=== PATIENT | female | born 1970 | race Caucasian/White ===

== ENCOUNTER → 2017-01-08 | Outpatient (CLI) | payer OTHER ==
--- NOTE | 2017-01-08 11:57 | MR ---
MR brain without contrast HISTORY: Headaches Planar multisequence imaging through the brain There is no restricted diffusion. No hemorrhage or hydrocephalus noted. There are normal vascular parish w voids. Cerebellopontine angles, corpus callosum, pituitary, cervical medullary junction are normal. Scattered hyperintensities are present within the deep white matter on inversion recovery and T2-renato ghted sequences, approximately 4 5 lesions noted. The orbits show a symmetric appearance. Mucosal dis ease present within the maxillary sinuses, ethmoid air cells. Probable sebaceous cyst present over th e left frontal scalp. IMPRESSION: Nonspecific white matter demyelination of questionable clinical significance. Findings co uld be due to migraine headaches, vasculitis, multiple sclerosis is felt to be less likely. Mild muco primo disease within the sinuses.
== END | disposition home or self-care (01) ==
LOC: RADMRIMAIN 10:15
PROVIDERS: ATTEND Family Medicine
DX: R51 Headache (principal)
CPT/HCPCS: 70551

== ENCOUNTER → 2017-10-07 | Outpatient (CLI) | payer OTHER ==
[2017-10-07 10:33] LABS: Basophils % (A) 0 %; Eosinophils # (A) 0.1 k/uL (0-0.7); Eosinophils % (A) 2 %; HCT 40.9 % (34.0-46.0); HGB 13.4 gm/dL (11.4-16.0); Lymphocytes # (A) 1.2 k/uL (1.0-4.8); Lymphocytes % (A) 23 %; MCH 31.6 pg (25.0-35.0); MCHC 32.9 g/dL (31.0-37.0); MCV 96.2 fL (80.0-100.0); Monocytes # (A) 0.5 k/uL (0-1.0); Monocytes % (A) 9 %; Neutrophils # (A) 3.3 k/uL (1.3-7.7); Neutrophils % (A) 64 %; Platelet Count 323 k/uL (150-450); RBC 4.25 m/uL (3.80-5.40); RDW 12.9 % (11.5-15.5); WBC 5.2 k/uL (3.8-10.6)
== END | disposition home or self-care (01) ==
LOC: LABPAT 09:36
PROVIDERS: ATTEND Obstetrics & Gynecology Obstetrics
DX: Z01.812 Encounter for preprocedural laboratory examination (principal); N92.0 Excessive and frequent menstruation with regular cycle
CPT/HCPCS: 36415; 85025

== ENCOUNTER 2017-10-15 07:39 | Day surgery (SDC) | payer OTHER ==
[2017-10-10 16:40] VITALS: BMI 25.4
--- NOTE | 2017-10-11 09:53 | HP ---
HISTORY AND PHYSICAL This is a very pleasant 46-year-old female, G3, P3, with complaints of heavy menstrual bleeding. Patient states her menstrual cycles are every 28 to 30 days, lasting 3 days in nature, very heavy with clots. She denies dysmenorrhea at this time. She does desire an endometrial ablation. Ultrasound was obtained, normal pelvic anatomy was visualized with a small intramural fibroid. PAST MEDICAL HISTORY: None. PAST SURGICAL HISTORY: Hernia surgery. MEDICATIONS: 1. Imitrex 100 mg as needed. 2. Xanax 0.25 mg as needed to sleep. ALLERGIES: No known drug allergies. 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 Menstrual cycles as stated above, are heavy in nature, but regular. SOCIAL HISTORY: She is a former smoker with minimal alcohol use. REVIEW OF SYSTEMS: She denies fatigue, fever, chills. GI: Denies diarrhea, constipation, or abdominal pain. GENITOURINARY: She admits to heavy menstrual cycles or menorrhagia. She denies urinary urgency, frequency, dysuria, dysmenorrhea, vaginal discharge or vaginal odor. PHYSICAL EXAM: Her vital signs are stable. CONSTITUTIONAL: She is a well-nourished, well-developed female. Her abdomen is noted to be soft and nontender. GENITOURINARY: External genitalia is normal appearance for age. The vaginal mucosa is pink and well rugated. The cervix is without lesion. The uterus is normal size, anteverted, and mobile. No adnexal masses are visualized. Mental status is normal in nature. She is alert and oriented. Her mood and affect are appropriate and she is grossly oriented to person, place, and time. ASSESSMENT: Menorrhagia. PLAN: Hysteroscopy, dilation and curettage with endometrial ablation, NovaSure. Information is given to the patient. All questions are answered and informed consent is obtained. Risks were reviewed with the patient including, but not limited to, infection, bleeding, uterine perforation, hematometra, failure of procedure with need for further surgery in the future. Patient states understanding. All questions are answered and we will proceed. MMODL / IJN: [id number] /
[~2017-10-15 07:39] MED LIST: DEXAMETHASONE SOD PHOSPHATE 10 MG/ML 1 ML VIAL IV ONE; HYDROmorphone 0.5 MG/0.5 ML SYRINGE IVP PRN; LACTATED RINGERS 1,000 ML IV SCH; LIDOCAINE 1% 20 ML VIAL (10MG/ML) FOR IV START INTRADERMA PRN; MIDAZOLAM 2 MG/2 ML VIAL IV PRN; ONDANSETRON 4 MG/2 ML VIAL IVP ONE; Pre Op ABX Message 1 EACH MISC MISCELLANE ONE; SCOPOLAMINE 1.5MG/72HR PATCH TRANSDERM ONE
[2017-10-15] MEDS ORDERED: LACTATED RINGERS 1,000 ML IV ONE (08:46)
[2017-10-15] MEDS ORDERED: KETOROLAC 30 MG/ML 1 ML VIAL ONE (10:21)
[2017-10-15] MEDS ORDERED: LIDOCAINE 1% INJ 10MG/ML (20 ML MDV) ONE (10:21)
[2017-10-15] MEDS ORDERED: MIDAZOLAM 2 MG/2 ML VIAL ONE (10:21)
[2017-10-15] MEDS ORDERED: fentaNYL (PF) 50 MCG/ML 2 ML AMP ONE (10:21)
[2017-10-15] MEDS ORDERED: PROPOFOL 10 MG/ML 20 ML VIAL IV ONE (10:21)
[2017-10-15 11:15] VITALS: TEMP 99
--- NOTE | 2017-10-15 11:22 | P.OP ---
Date of Procedure: 10/15/17 Preoperative Diagnosis: Menorrhagia Postoperative Diagnosis: Same Procedure(s) Performed: Hysteroscopy, dilation and curettage with endometrial ablation, NovaSure Anesthesia: MAC Surgeon: Roshni Jacob Estimated Blood Loss (ml): 10 IV fluids (ml): 350 Urine output (ml): 100 Pathology: other (Endometrial curettings) Condition: stable Disposition: PACU Indications for Procedure: Heavy menstrual bleeding Operative Findings: Normal endometrial cavity Description of Procedure: Patient was seen in the preoperative area where informed consent was obtained. Risks reviewed questions were answered. Patient was taken to the operating suite where general anesthesia was obtained without difficulty by the anesthesia department. She was prepped and draped in normal sterile fashion in the dorsal lithotomy position. A regular catheter was draining the bladder of clear yellow urine. A weighted speculum was placed in the posterior vaginal vault, the anterior lip of the cervix was visualized, grasped with a single- tooth tenaculum and the endocervical canal was then dilated to 18-[place] Islander. At this point the hysteroscope was placed through the cervix and toward the endometrial cavity a normal cavity was appreciated. The gutters were taken and the hysteroscope was removed. A sharp curettage was then performed until gritty texture was noted in all 4 quadrants of the endometrial cavity. NovaSure device was then opened and set to the patient's appropriate measurements. 4 cm uterine length, with a 3.9, power of 86 for a time of 100 seconds. Cavity assessment was performed and passed afterwards the cycle was allowed to complete. Afterwards the NovaSure was removed without difficulty the single-tooth tenaculum was removed off of the anterior lip of the cervix with good hemostasis being appreciated. All instruments were removed from the patient's vaginal vault. All counts are correct 2 patient was taken the recovery room awake and in stable condition.
[2017-10-15] MEDS ORDERED: SODIUM CHLORIDE 0.9% 1,000 ML IV ONE (11:39)
[2017-10-15 12:44] VITALS: BP 141/89; PULSE 71; RESP 16
== END 2017-10-15 12:45 | disposition home or self-care (01) ==
LOC: OR 07:39
PROVIDERS: ATTEND Obstetrics & Gynecology Obstetrics
DX: N92.0 Excessive and frequent menstruation with regular cycle (principal); D25.1 Intramural leiomyoma of uterus; G43.909 Migraine, unspecified, not intractable, without status migrainosus; Z79.899 Other long term (current) drug therapy; Z87.891 Personal history of nicotine dependence
CPT/HCPCS: 58563; 81025; 88305; J2250; J1100; J2405; J2001; J3010; J1885; J2704

== ENCOUNTER → 2018-01-31 | Outpatient (CLI) | payer OTHER ==
--- NOTE | 2018-01-31 14:17 | MR ---
EXAMINATION TYPE: MR brain wo con DATE OF EXAM: 01/31/2018 2:08 PM COMPARISON: 01/08/2017 HISTORY: ,MS Multiplanar and multispin-echo imaging of the brain was performed . The ventricles, basal cisterns and sulci overlying the cerebral convexities are within normal limits. There is no evidence for midline shift or mass effect. Acute intracranial hemorrhage or extra-axial collection is not evident. 4-5 and nonspecific white matter lesions are noted the largest is seen within the high left frontal s ubcortical region and measures 3 mm. No significant change is appreciated. Differential diagnostic po ssibilities include demyelinating disease, sequela of chronic migraine headaches and Lyme's disease a s well as vasculopathy. No acute edema is identified. The paranasal sinuses and mastoid air cells are well-aerated. IMPRESSION: Stable nonspecific white matter changes.
== END | disposition home or self-care (01) ==
LOC: RADMRIMAIN 13:36
PROVIDERS: ATTEND Family Medicine
DX: R90.82 White matter disease, unspecified (principal)
CPT/HCPCS: 70551

== ENCOUNTER → 2018-04-18 | Outpatient (CLI) | payer OTHER ==
--- NOTE | 2018-04-21 15:00 | MM ---
Reason for exam: screening (asymptomatic). Last mammogram was performed 2 years and 1 month ago. History: Family history of breast cancer in mother at age 60. Physical Findings: A clinical breast exam by your physician is recommended on an annual basis and results should be correlated with mammographic findings. MG 3D Screening Mammo W/Cad Bilateral CC and MLO view(s) were taken. Prior study comparison: 2017, mammogram, performed at [facility]. The breast tissue is heterogeneously dense. This may lower the sensitivity of mammography. Focal asymmetry central right breast stable since 2016. No significant changes when compared with prior studies. ASSESSMENT: Benign, BI-RAD 2 RECOMMENDATION: Routine screening mammogram of both breasts in 1 year.
== END | disposition home or self-care (01) ==
LOC: RADMAMWWP 10:53
PROVIDERS: ATTEND Family Medicine
DX: Z12.31 Encounter for screening mammogram for malignant neoplasm of breast (principal)
CPT/HCPCS: 77063; 77067

== ENCOUNTER → 2019-11-11 | Outpatient (CLI) | payer OTHER ==
--- NOTE | 2019-11-12 08:46 | MM ---
Reason for exam: screening (asymptomatic). Last mammogram was performed 1 year and 7 months ago. History: Family history of breast cancer in mother at age 60. Physical Findings: A clinical breast exam by your physician is recommended on an annual basis and results should be correlated with mammographic findings. MG 3D Screening Mammo W/Cad Bilateral CC and MLO view(s) were taken. Prior study comparison: April 18, 2018, bilateral MG 3d screening mammo w/cad. 2016, mammogram, performed at [facility]. The breast tissue is extremely dense which could obscure a lesion on mammography. Benign appearing bilateral calcifications. No significant changes when compared with prior studies. ASSESSMENT: Benign, BI-RAD 2 RECOMMENDATION: Routine screening mammogram of both breasts in 1 year.
== END | disposition home or self-care (01) ==
LOC: RADMAMWWP 11:01
PROVIDERS: ATTEND Family Medicine
DX: Z12.31 Encounter for screening mammogram for malignant neoplasm of breast (principal)
CPT/HCPCS: 77063; 77067

== ENCOUNTER → 2020-12-02 | Outpatient (CLI) | payer OTHER ==
--- NOTE | 2020-12-05 10:32 | MM ---
Reason for exam: screening (asymptomatic). Last mammogram was performed 1 year and 1 month ago. History: Patient is postmenopausal. Family history of breast cancer in mother at age 60. Physical Findings: A clinical breast exam by your physician is recommended on an annual basis and results should be correlated with mammographic findings. MG 3D Screening Mammo W/Cad Bilateral CC and MLO view(s) were taken. Prior study comparison: November 11, 2019, bilateral MG 3d screening mammo w/cad. April 18, 2018, bilateral MG 3d screening mammo w/cad. The breast tissue is extremely dense which could obscure a lesion on mammography. There is no discrete abnormality. No significant changes when compared with prior studies. ASSESSMENT: Negative, BI-RAD 1 RECOMMENDATION: Routine screening mammogram of both breasts in 1 year.
== END | disposition home or self-care (01) ==
LOC: RADMAMWWP 16:29
PROVIDERS: ATTEND Obstetrics & Gynecology Obstetrics
DX: Z12.31 Encounter for screening mammogram for malignant neoplasm of breast (principal); Z78.0 Asymptomatic menopausal state; Z80.3 Family history of malignant neoplasm of breast
CPT/HCPCS: 77063; 77067

== ENCOUNTER → 2022-01-05 | Outpatient (CLI) | payer OTHER ==
--- NOTE | 2022-01-08 10:55 | MM ---
Reason for Exam: Screening (asymptomatic). Last mammogram was performed 1 year(s) and 1 month(s) ago. Patient History: Menarche at age 13. First Full-Term at age 20. Postmenopausal. Patient has history of breast feeding. Mother had breast cancer, age 60. Risk Values: Ananya 5 year model risk: 1.8%. NCI Lifetime model risk: 14.6%. Prior Study Comparison: 04/18/2018 Bilateral Screening Mammogram, [facility]. 11/11/2019 Bilateral Screening Mammogram, [facility]. 12/02/2020 Bilateral Screening Mammogram, [facility]. Tissue Density: The breast tissue is heterogeneously dense. This may lower the sensitivity of mammography. Findings: Analyzed By CAD. Benign-appearing bilateral axillary lymph nodes are redemonstrated. There is no suspicious new group of microcalcifications or new suspicious mass in either breast. Overall Assessment: Benign, BI-RAD 2 Management: Screening Mammogram of both breasts in 1 year. Some advise bilateral breast ultrasound surveillance in patients with background dense tissue. A clinical breast exam by your physician is recommended on an annual basis and results should be correlated with mammographic findings. Electronically signed and approved by: Fernie Bobby M.D.
== END | disposition home or self-care (01) ==
LOC: RADMAMWWP 16:31
PROVIDERS: ATTEND Obstetrics & Gynecology Obstetrics
DX: Z12.31 Encounter for screening mammogram for malignant neoplasm of breast (principal); Z78.0 Asymptomatic menopausal state; Z80.3 Family history of malignant neoplasm of breast
CPT/HCPCS: 77063; 77067

== ENCOUNTER → 2022-09-13 | Outpatient (CLI) | payer OTHER ==
--- NOTE | 2022-09-13 13:50 | CT ---
EXAMINATION TYPE: CT sinus wo con DATE OF EXAM: 09/13/2022 COMPARISON: None HISTORY: Chronic sinusitis. CT DLP: 654.[address] of the paranasal sinuses was performed in the axial and coronal planes. Bone and soft tissue settings are submitted. The paranasal sinuses demonstrate normal aeration and development. Complete opacification left maxillary sinus with obstruction of the left ostiomeatal unit. There is o pacification of the left sided ethmoid air cells anteriorly. There is opacification of the left front al sinus as well. The remaining paranasal sinuses are well-aerated. Underlying polyposis not excluded . The right ostiomeatal unit is patent. Nasal septal deviation from right to left. No bony destructive changes are seen within the field of view. IMPRESSION: Complete opacification left maxillary sinus with obstruction of the left ostiomeatal unit. There is o pacification of the left sided ethmoid air cells anteriorly. There is opacification of the left front al sinus as well. Underlying polyposis not excluded.
--- NOTE | 2022-09-13 13:51 | CT ---
EXAMINATION TYPE: CT heart w calcium score DATE OF EXAM: 09/13/2022 COMPARISON: HISTORY: Screening for cardiovascular disorder. 213.9 CT DLP: 76.2 mGycm Automated exposure control for dose reduction was used. CT CALCIUM SCORING Coronary calcium is a marker for plaque (fatty deposits) in a blood vessel or atherosclerosis (harden ing of the arteries). The presence and amount of calcium detected in a coronary artery by the CT sca n, indicates the presence and amount of atherosclerotic plaque. These calcium deposits appear years before the development of heart disease symptoms such as chest pain and shortness of breath. A calcium score is computed for each of the coronary arteries based upon the volume and density of th e calcium deposits. This can be referred to as your calcified plaque burden. It does not correspond directly to the percentage of narrowing in the artery but does correlate with the severity of the un derlying coronary atherosclerosis. PROCEDURE TECHNIQUE - Prospective Gating was used. Slice thickness: 3mm. Density threshold (HU): 130, Pixel threshold: 3, Algorithm: discrete. RESULTS Region: LM Calcium Score (Agatston): 0 Volume (mm3): 0 Mass (g): 0 Region: RCA Calcium Score (Agatston): 0 Volume (mm3): 0 Mass (g): 0 Region: LAD Calcium Score (Agatston): 0 Volume (mm3): 0 Mass (g): 0 Region: CX Calcium Score (Agatston): 0 Volume (mm3): 0 Mass (g): 0 Region: PDA Calcium Score (Agatston): 0 Volume (mm3): 0 Mass (g): 0 Total: Calcium Score (Agatston): 0 Volume (mm3): 0 Mass (g): 0 TOTAL CALCIUM SCORE: 0 There is a small hiatal hernia. There is a 3 mm calcified granuloma left lower lobe. IMPRESSION: Calcium Score: 0 Implication: No identifiable plaque. Risk of Coronary Artery Disease: Very low, generally less than 5%. CALCIUM SCORE IMPLICATION RISK OF C ORONARY ARTERY DISEASE 0 No identifiable plaque Very low, generally less than 5% 1-10 Minimal identifiable plaque Very unlikely, less than 10% 11-100 Definite, at least mild atherosclerotic plaque Mild or m inimal coronary narrowings likely 101-400 Definite, at least moderate atherosclerotic plaque Mild coronary ar trevon disease highly likely, significant narrowing possible 401 or Higher Extensive atherosclerotic plaque High lik elihood of at least one significant coronary narrowing
== END | disposition home or self-care (01) ==
LOC: RADCTMAIN 13:05
PROVIDERS: ATTEND Otolaryngology
DX: Z13.6 Encounter for screening for cardiovascular disorders (principal); J32.0 Chronic maxillary sinusitis; J34.89 Other specified disorders of nose and nasal sinuses
CPT/HCPCS: 70486; 75571

== ENCOUNTER → 2023-02-07 | Outpatient (CLI) | payer OTHER ==
--- NOTE | 2023-02-10 16:37 | MM ---
Reason for Exam: Screening (asymptomatic). Last mammogram was performed 1 year(s) and 1 month(s) ago. Patient History: Menarche at age 13. First Full-Term at age 20. Postmenopausal. Patient has history of breast feeding. Mother had breast cancer, age 60. Risk Values: Ananya 5 year model risk: 1.9%. NCI Lifetime model risk: 14.4%. Prior Study Comparison: 11/11/2019 Bilateral Screening Mammogram, [facility]. 12/02/2020 Bilateral Screening Mammogram, [facility]. 01/05/2022 Bilateral MG 3D screening mammo w/cad, [facility]. Tissue Density: The breast tissue is heterogeneously dense. This may lower the sensitivity of mammography. Findings: Analyzed By CAD. Unchanged regional calcifications within the left breast. There is no suspicious group of microcalcifications or new suspicious mass in either breast. Overall Assessment: Benign, BI-RAD 2 Management: Screening Mammogram of both breasts in 1 year. . Patient should continue monthly self-breast exams. A clinical breast exam by your physician is recommended on an annual basis. This exam should not preclude additional follow-up of suspicious palpable abnormalities. Note on Ananya scores and lifetime risk: 1. A Ananya score greater than 3% is considered moderate risk. If this is the case, consider specialist referral to assess eligibility for a risk reducing agent. 2. If overall lifetime risk for the development of breast cancer is 20% or higher, the patient may qualify for future screening with alternating mammogram and breast MRI. Electronically signed and approved by: Tank Camilo M.D. Radiologist
== END | disposition home or self-care (01) ==
LOC: RADMAMWWP 13:48
PROVIDERS: ATTEND Obstetrics & Gynecology Obstetrics
DX: Z12.31 Encounter for screening mammogram for malignant neoplasm of breast (principal); Z78.0 Asymptomatic menopausal state; Z80.3 Family history of malignant neoplasm of breast
CPT/HCPCS: 77063; 77067

== ENCOUNTER → 2024-03-27 | Outpatient (CLI) | payer OTHER ==
--- NOTE | 2024-03-27 08:48 | MM ---
Reason for Exam: High risk patient. Last mammogram was performed 1 year(s) and 2 month(s) ago. Patient History: Menarche at age 13. First Full-Term at age 20. Postmenopausal. Patient has history of breast feeding. Currently using Progesterone. Mother had breast cancer, age 60. Risk Values: Ananya 5 year model risk: 2.0%. NCI Lifetime model risk: 14.1%. Tissue Density: The breasts are heterogeneously dense, which may obscure small masses. Findings: Analyzed By CAD. The pattern is symmetrical. There are regional punctate calcifications upper outer posterior quadrant. These are somewhat more scattered on the mediolateral view. These appear present previously. No suspicious groups of microcalcifications, spiculated or lobular masses, architectural distortion or other secondary signs of malignancy are mammographically apparent. Overall Assessment: Incomplete: need additional imaging evaluation, BI-RAD 0 Management: Diagnostic Breast Ultrasound of both breasts. A negative mammogram report should not preclude additional follow up of suspicious palpable abnormalities. Patient should continue monthly self breast exam. A clinical breast exam by your physician is recommended on an annual basis and results should be correlated with mammographic findings. Note on Ananya scores and lifetime risk: 1. A Ananya score greater than 3% is considered moderate risk. If this is the case, consider specialist referral to assess eligibility for a risk reducing agent. 2. If overall lifetime risk for the development of breast cancer is 20% or higher, the patient may qualify for future screening with alternating mammogram and breast MRI. [facility], , 03/27/2024 8:45 AM. Electronically signed and approved by: Gildardo Amezquita D.O. Radiologis
--- NOTE | 2024-03-27 10:04 | USB ---
Reason for Exam: Clinical finding. Patient History: Menarche at age 13. First Full-Term at age 20. Postmenopausal. Patient has history of breast feeding. Currently using Progesterone. Mother had breast cancer, age 60. Risk Values: Ananya 5 year model risk: 2.0%. NCI Lifetime model risk: 14.1%. Technique: Method: Whole Breast Handheld. Prior Study Comparison: 12/02/2020 Bilateral Screening Mammogram, [facility]. 01/05/2022 Bilateral MG 3D screening mammo w/cad, [facility]. 02/07/2023 Bilateral MG 3D screening mammo w/cad, [facility]. Findings: The whole breast of both breasts, the axilla of both breasts and the retroareolar of both breasts were scanned. No solid or cystic masses are identified.. No suspicious ultrasound abnormality lateral left breast at the location of the patient's pain. Overall Assessment: Negative, BI-RAD 1 Management: Diagnostic Breast MRI of both breasts. Diagnostic Mammogram of the left breast in 6 months. A clinical breast exam by your physician is recommended on an annual basis and results should be correlated with mammographic findings. This exam should not preclude additional follow-up of suspicious palpable abnormalities. Results were given to the patient verbally at the time of exam. [facility], , 03/27/2024 9:25 AM. Electronically signed and approved by: Gildardo Amezquita D.O. Radiologis
== END | disposition home or self-care (01) ==
LOC: RADMAMWWP 07:50
PROVIDERS: ATTEND Family Medicine
DX: R92.333 Mammographic heterogeneous density, bilateral breasts (principal); Z80.3 Family history of malignant neoplasm of breast; Z78.0 Asymptomatic menopausal state
CPT/HCPCS: 77062; 77066